=== PATIENT | female | born 1980 | race Caucasian/White ===

== ENCOUNTER 2024-04-15 22:02 | Emergency (ER) | payer OTHER, SELFPAY ==
[2024-04-15 22:16] VITALS: BP 128/72; RESP 16; TEMP 37.1; O2SAT 98; BMI 28.7
[2024-04-15 23:49] VITALS: PULSE 79; O2SAT 98
[2024-04-15 23:50] VITALS: BP 124/59; PULSE 79; O2SAT 99
[2024-04-16] VITALS: BP 103/53; PULSE 70; RESP 18; O2SAT 98
--- NOTE | 2024-04-16 00:26 | PC.NURSE ---
Pt states that she thought area between her brows was just a pimple that needed to be popped. She tried without success. She states that the swelling and pressure has increased over the last week and sometimes moves to her eyes.
[2024-04-16 00:30] VITALS: BP 109/63; PULSE 70; O2SAT 99
[2024-04-16 01:00] VITALS: BP 111/74; PULSE 78; RESP 18; O2SAT 100
--- NOTE | 2024-04-16 01:12 | ED.SKABFB ---
HPI - Skin/Abscess/Foreign Bdy General Chief complaint: Skin/Abscess/Foreign Body Stated complaint: bump on forehead since tuesday Time Seen by Provider: 04/16/24 01:12 Source: patient Mode of arrival: Ambulatory Limitations: no limitations History of Present Illness HPI narrative: Patient healthy 44-year-old female who presents today with redness and swelling middle of her forehead. She reports it has been for the last 4 so days progressively getting worse. She has been using warm compresses denies any fever or chills. Tried squeezing it on her own but it has just not getting any better. No prior history of abscess. Related Data Previous Rx's Medication Instructions Recorded doxycycline hyclate 100 mg capsule 100 mg PO BID #14 caps 04/16/24 Patient History Social History Smoking Status: Former smoker Smoking Status: Former smoker alcohol intake frequency: holidays/special occasions only Substance Use Type: does not use Exam Initial Vital Signs Initial Vital Signs: Vital Signs Temperature 98.7 F 04/15/24 22:16 Respiratory Rate 16 04/15/24 22:16 Blood Pressure 128/72 04/15/24 22:16 Pulse Oximetry 98 04/15/24 22:16 Oxygen Delivery Method Room Air 04/15/24 22:16 GENERAL: Well-appearing, well-nourished and in no acute distress. CARDIOVASCULAR: peripheral pulses in tact, cap refill <2 sec RESPIRATORY: No respiratory distress, speaks in full sentences without difficulty EXTREMITIES: Normal range of motion, no clubbing or edema. Neurovascularly intact NEUROLOGICAL: Cranial nerves II through XII grossly intact. Normal gait and speech. SKIN: Center of forehead between eyebrows 2 cm x 2 cm fluctuation no induration mild drainage Procedures Abscess I/D I&D #1: Site: face Local Anesthetic: lidocaine 1% Amount of anesthesia used (mL): 2 Technique: incised with #11 blade Amount of fluid expressed (mL): 2 Course Orders Ordered: ED Orders 04/16/24 01:05 Wound Culture and Gram Stain Stat Discontinued Medications Doxycycline Hyclate (Doxycycline Hyclate 100 Mg Tablet) 100 mg PO NOW ONE Stop: 04/16/24 01:13 Last Admin: 04/16/24 01:18 Dose: 100 mg Documented By: IESHA Vital Signs Vital signs: Vital Signs - 8 hr 04/15/24 22:16 04/15/24 23:49 04/15/24 23:50 Temperature 98.7 F Pulse Rate 79 79 Respiratory Rate 16 Blood Pressure 128/72 Pulse Oximetry 98 98 99 Oxygen Delivery Method Room Air 04/15/24 23:50 04/16/24 00:00 04/16/24 00:00 Temperature Pulse Rate 70 Respiratory Rate 18 Blood Pressure 124/59 L 103/53 L Pulse Oximetry 98 Oxygen Delivery Method 04/16/24 00:30 04/16/24 00:30 04/16/24 01:00 Temperature Pulse Rate 70 78 Respiratory Rate Blood Pressure 109/63 Pulse Oximetry 99 100 Oxygen Delivery Method 04/16/24 01:00 Temperature Pulse Rate Respiratory Rate 18 Blood Pressure 111/74 Pulse Oximetry Oxygen Delivery Method MDM - Skin/Abscess/Foreign Bdy MDM Narrative Medical decision making narrative: Patient is a healthy 44-year-old female who presents today abscess in the middle of her forehead. No evidence of sepsis. It was I and D with gross drainage culture taken. Started on doxycycline. Discharge Plan Departure Patient Disposition: Home Clinical Impression: Abscess of skin or subcutaneous tissue Instructions: DI for Skin Abscess Activity Restrictions/Additional Instructions: *You have been diagnosed with skin abscess *What to do: This should start to feel better. Continue warm compresses apply bacitracin ointment 1-2 times daily. Wash with soap and water avoid creams and lotions *Continue to take medications as directed Doxycycline 100 mg twice a day for 7 days *Follow up with your primary care provider in 2-3 days or call [phone] *Return to ER if you should have increasing redness swelling pain fever or any new, worsening or concerning symptoms Prescriptions: New doxycycline hyclate 100 mg capsule 100 mg PO BID Qty: 14 0RF Referrals: ProviderKaitlynn [Primary Care Provider] - Stand Alone Forms: Patient Portal/API
[2024-04-16] MEDS: DOXYCYCLINE HYCLATE 100 MG TABLET PO (01:18)
== END 2024-04-16 01:24 | disposition home or self-care (01) ==
PROVIDERS: Emergency Provider Emergency Medicine
DX: L02.01 Cutaneous abscess of face (principal)
CPT/HCPCS: 10060; 87070; 87077; 87147; 87186; 87205; 99283

== ENCOUNTER 2024-04-23 22:07 | Emergency (ER) | payer OTHER, SELFPAY ==
[2024-04-23 22:15] VITALS: BP 130/91; PULSE 95; RESP 20; TEMP 36.7; O2SAT 100; BMI 28.3
--- NOTE | 2024-04-23 22:26 | ED_ITS ---
HPI - Recheck/Abnormal Lab/Rx General Chief Complaint: Recheck/Abnormal Lab/Rx Stated Complaint: skin absess Time Seen by Provider: 04/23/24 22:08 Source: patient and family Mode of arrival: Ambulatory History of Present Illness HPI narrative: 44-year-old female presents for wound check. One week ago patient came to the emergency department for abscess on her forehead. It was incised and drained and patient was discharged with 1 week of doxycycline. Patient finished her doxycycline today, but still has a small bump in between her eyes. She was concerned that she may still have an infection present Related Data Previous Rx's Medication Instructions Recorded doxycycline hyclate 100 mg capsule 100 mg PO BID #14 caps 04/16/24 Patient History Social History Smoking Status: Former smoker Smoking Status: Former smoker alcohol intake frequency: holidays/special occasions only Substance Use Type: does not use Exam Initial Vital Signs Initial Vital Signs: Vital Signs Temperature 98.1 F 04/23/24 22:15 Pulse Rate 95 H 04/23/24 22:15 Respiratory Rate 20 04/23/24 22:15 Blood Pressure 130/91 H 04/23/24 22:15 Pulse Oximetry 100 04/23/24 22:15 Oxygen Delivery Method Room Air 04/23/24 22:15 Const: Awake, alert, no acute distress, nontoxic appearing Eyes: PERRL, EOMI Skin: Warm, Dry, intact, small 1cm area of raised skin between eyebrows. No fluctuance, no induration Neuro: AO x3, CN II-XII grossly intact, moves all extremities Course Vital Signs Vital signs: Vital Signs - 8 hr 04/23/24 22:15 Temperature 98.1 F Pulse Rate 95 H Respiratory Rate 20 Blood Pressure 130/91 H Pulse Oximetry 100 Oxygen Delivery Method Room Air MDM - Recheck/Abnormal Lab/Rx MDM Narrative Medical decision making narrative: Well-appearing patient presenting for wound check, concerned that there may be residual infection in the area of previous drainage. There does appear to be a raised area of skin, however it was nontender to touch, there was no fluctuance, no surrounding erythema, no excessive warmth. Suspect that this may be underlying scar tissue. Point of care ultrasound performed by myself in the area of concern showed no fluid collection or cellulitis to indicate active ongoing infection. Patient was counseled to continue to use warm compresses, however this area should resolve with time. Discharge Plan Departure Patient Disposition: Home Clinical Impression: Encounter for wound re-check Instructions: Skin Wound Activity Restrictions/Additional Instructions: I did not see any fluid collection or celluitis either on my physical exam or on the ultrasound. Your abscess grew Staphylococcus aureus that was sensitive to almost every antibiotic, so it should have been fully treated by the doxycycline, and the length of your antibiotic course was appropriate. The area of concern is likely resolving scar tissue from the incision and drainage pro cedure. Use warm compresses multiple times per day. Follow up with your primary care doctor or a concrete mixing truck driver if you start noticing more abscesses Prescriptions: No Action doxycycline hyclate 100 mg capsule 100 mg PO BID Qty: 14 0RF Referrals: ProviderKaitlynn [Primary Care Provider] - Stand Alone Forms: Patient Portal/API
== END 2024-04-23 22:36 | disposition home or self-care (01) ==
PROVIDERS: Emergency Provider Emergency Medicine
DX: L02.01 Cutaneous abscess of face (principal)
CPT/HCPCS: 99281